=== PATIENT | male | born 1980 | race Hispanic/Latino ===

== ENCOUNTER 2022-12-09 13:20 | Emergency (ER) | payer BC ==
[2022-12-09] MEDS ORDERED: Ketorolac Tromethamine 30 MG/ML VIAL ONE (14:07)
[2022-12-09] MEDS ORDERED: Orphenadrine Citrate 60 MG/2 ML VIAL ONE (14:07)
== END 2022-12-09 14:37 | disposition home or self-care (01) ==
LOC: ERS 13:20
DX: M54.41 Lumbago with sciatica, right side (principal)
CPT/HCPCS: 96372; 99283; J1885; J2360